=== PATIENT | female | born 2000 | race Two or more races ===

== ENCOUNTER 2022-05-26 23:15 | Emergency (ER) | payer MEDICAID ==
[~2022-05-26] VITALS: Ht 162.6 cm; Wt 65.8 kg
[2022-05-27 00:44] VITALS: BP 138/96
== END 2022-05-27 05:25 | disposition home or self-care (01) ==
LOC: ER 23:15
DX: U07.1 COVID-19 (principal); B34.9 Viral infection, unspecified; R07.89 Other chest pain
CPT/HCPCS: 36415; 93005